=== PATIENT | female | born 1995 | race Two or more races ===

== ENCOUNTER → 2016-10-08 | Emergency (ER) | payer OTHER ==
[~2016-10-08] MED LIST: INSULIN (NOVOLOG) ASPART 100 UNITS/ML 10ML VIAL ONE; NITROFURANTOIN MACROCRYSTAL 50 MG CAPSULE (FP) ONE; NITROFURANTOIN MACROCRYSTAL 50 MG CAPSULE (FP) PO SCH
[2016-10-08 21:18] VITALS: TEMP 98.5; BMI 34.8
[2016-10-08 21:37] LABS: URINE APPEARANCE SLCLOUDY; URINE BILIRUBIN NEGATIVE (NEGATIVE); URINE BLOOD NEGATIVE (NEGATIVE); URINE COLOR LTYELLOW; URINE GLUCOSE (UA) NEGATIVE (NEGATIVE); URINE KETONE NEGATIVE (NEGATIVE); URINE NITRITE NEGATIVE (NEGATIVE); URINE PROTEIN NEGATIVE (NEGATIVE); URINE UROBILINOGEN NEGATIVE E.U./dl (0.2-1.0)
[2016-10-08 21:39] LABS: URINE LEUK ESTERASE 2+ (NEGATIVE)
[2016-10-08 21:40] LABS: URINE MUCUS RARE; URINE RBC 5 /hpf (0-3); URINE WBC 8 /hpf (3-5)
--- NOTE | 2016-10-08 23:28 | PDOC ---
History of Present Illness - General History Source: Patient, Old Records Exam Limitations: No Limitations <Vanessa Orozco - Last Filed: 10/09/16 00:03> - History of Present Illness Initial Comments: 10/09/16 00:12 Patient is a 20 year old female (G1; LNMP: 07/2016 - reports irregular menses) with no significant medical hx who is presenting to the ED abdominal pain and fever since yesterday. Patient complains of suprapubic pain but denies any vaginal bleeding, discharge, dysuria or other complaints. She notes that her fever went as high as 103.1. The patient also reports two days of hot flashes, dizziness, and nasal congestion. Patient has been taking tylenol for her symptoms. Denies any cough, wheezing, nausea, vomiting or diarrhea. <Yesenia Foster - Last Filed: 10/09/16 00:15> - General Chief Complaint: ,Possible Stated Complaint: ABD PAIN Time Seen by Provider: 10/08/16 23:17 Past History - Psycho/Social/Smoking Cessation Hx Suicidal Ideation: No Smoking History: Never smoked Have you smoked in the past 12 months: No Information on smoking cessation initiated: No Hx Alcohol Use: No Drug/Substance Use Hx: No <Vanessa Orozco - Last Filed: 10/09/16 00:03> <Yesenia Foster - Last Filed: 10/09/16 00:15> - Past Medical History Allergies/Adverse Reactions: Allergies Allergy/AdvReac Type Severity Reaction Status Date / Time No Known Allergies Allergy Verified 10/08/16 21:18 Home Medications: Ambulatory Orders Nitrofurantoin Monohyd/M-Cryst [Macrobid -] 100 mg PO BID #14 capsule 10/09/16 Review of Systems - Review of Systems Comments:: 10/09/16 00:13 GENERAL/CONSTITUTIONAL: Fever, hot flashes. No chills. No weakness. HEAD, EYES, EARS, NOSE AND THROAT: Nasal congestion. No change in vision. No ear pain or discharge. No sore throat. CARDIOVASCULAR: No chest pain or shortness of breath. RESPIRATORY: No cough, wheezing, or hemoptysis. GASTROINTESTINAL: Suprapubic pain. No nausea, vomiting, diarrhea or constipation. GENITOURINARY: No dysuria, frequency, or change in urination. MUSCULOSKELETAL: No joint or muscle swelling or pain. No neck or back pain. ENDOCRINE: No increased thirst. No abnormal weight change. SKIN: No rash NEUROLOGIC: Dizziness. No headache, loss of consciousness, or change in strength /sensation. <Yesenia Foster - Last Filed: 10/09/16 00:15> *Physical Exam - Vital Signs Last Vital Signs Temp Pulse Resp BP Pulse Ox 98.5 F 71 18 110/59 100 10/08/16 21:15 10/08/16 21:15 10/08/16 21:15 10/08/16 21:15 10/08/16 21:15 <Vanessa Orozco - Last Filed: 10/09/16 00:03> - Vital Signs Last Vital Signs Temp Pulse Resp BP Pulse Ox 98.5 F 71 18 110/59 100 10/08/16 21:15 10/08/16 21:15 10/08/16 21:15 10/08/16 21:15 10/08/16 21:15 - Physical Exam Comments: 10/09/16 00:14 GENERAL: Awake, alert, and fully oriented, in no acute distress HEAD: No signs of trauma EYES: PERRLA, EOMI, sclera anicteric, conjunctiva clear ENT: Auricles normal inspection, hearing grossly normal, nares patent, oropharynx clear without exudates. Moist mucosa NECK: Normal ROM, supple, no lymphadenopathy, JVD, or masses LUNGS: Breath sounds equal, clear to auscultation bilaterally. No wheezes, and no crackles HEART: Regular rate and rhythm, normal S1 and S2, no murmurs, rubs or gallops ABDOMEN: Soft, mild suprapubic tenderness without any guarding or rebound, normoactive bowel sounds. No masses EXTREMITIES: Normal range of motion, no edema. No clubbing or cyanosis. No cords, erythema, or tenderness NEUROLOGICAL: Cranial nerves II through XII grossly intact. Normal speech, normal gait SKIN: Warm, Dry, normal turgor, no rashes or lesions noted. HEMATOLOGIC/LYMPHATIC: No anemia, easy bleeding, or history of blood clots. ALLERGIC/IMMUNOLOGIC: No hives or skin allergy. PELVIC: Os closed. No vaginal discharge. No cervical motion tenderness. <Yesenia Foster - Last Filed: 10/09/16 00:15> ED Treatment Course - ADDITIONAL ORDERS Additional order review: Laboratory Results 10/08/16 21:25 Urine Color Ltyellow Urine Appearance Slcloudy Urine pH 6.0 Urine Protein Negative Urine Glucose (UA) Negative Urine Ketones Negative Urine Blood Negative Urine Nitrite Negative Urine Bilirubin Negative Urine Urobilinogen Negative Ur Leukocyte Esterase 2+ H Urine RBC 5 Urine WBC 8 Ur Epithelial Cells Moderate Urine Mucus Rare Urine HCG, Qual Positive <Vanessa Orozco - Last Filed: 10/09/16 00:03> - ADDITIONAL ORDERS Additional order review: Laboratory Results 10/08/16 21:25 Urine Color Ltyellow Urine Appearance Slcloudy Urine pH 6.0 Urine Protein Negative Urine Glucose (UA) Negative Urine Ketones Negative Urine Blood Negative Urine Nitrite Negative Urine Bilirubin Negative Urine Urobilinogen Negative Ur Leukocyte Esterase 2+ H Urine RBC 5 Urine WBC 8 Ur Epithelial Cells Moderate Urine Mucus Rare Urine HCG, Qual Positive <Yesenia Foster - Last Filed: 10/09/16 00:15> Medical Decision Making - Medical Decision Making 10/09/16 00:03 20-year-old female presents the emergency Department with complaints of lower abdominal pain intermittent for several weeks, worse over the past 2 days. She has no vaginal discharge or bleeding. Differential diagnosis includes but is not limited to: Ectopic , urinary tract infection, round ligament pain. Plan: 1. Urine analysis 2. Pelvic ultrasound 3. Observe and reevaluate Addendum: Urine analysis is positive for leukoesterase. Focused bedside ultrasound reveals a positive IUP measuring 5 weeks and 6 days. There is a pole with a heart beat visualized; however heart rate could not be obtained due to the size of the . There were no adnexal masses or ectopic pregnancies visualized on my exam therefore heterotopic is unlikely. I will treat the patient for a UTI. I have instructed the patient to follow-up with her derrick boat runner within the next week and to return to the emergency department if her symptoms persist, worsen, or new symptoms arise. <Vanessa Orozco - Last Filed: 10/09/16 00:03> *DC/Admit/Observation/Transfer - Discharge Dispostion Admit: No - Attestations Physician Attestion: 10/09/16 00:07 I, Dr. Vanessa Orozco, attest that the scribes documentation that appears above has been prepared under my direction and personally reviewed by me in its entirety. I confirmed that the note above accurately reflects all work, treatment, procedures, and medical decision-making performed by me. <Vanessa Orozco - Last Filed: 10/09/16 00:03> - Attestations Scribe Attestion: 10/09/16 00:15 Documentation prepared by Yesenia Foster, acting as medical van driver for Vanessa Orozco MD. <Yesenia Foster - Last Filed: 10/09/16 00:15> Diagnosis at time of Disposition: UTI (urinary tract infection), , incidental - Prescriptions Prescriptions: Nitrofurantoin Monohyd/M-Cryst [Macrobid -] 100 mg PO BID #14 capsule - Referrals Referrals: STAFF,NOT ON [Primary Care Provider] - - Patient Instructions Printed Discharge Instructions: DI for Urinary Tract Infection (UTI) Additional Instructions: You are being treated for a urinary tract infection with macrobid 100mg--take one tablet twice per day. you have received your first dose in the ED today. Please follow-up with your White Spooler within the next 1-3 days and return to the ED if your symptoms persist, worsen or new symptoms arise.
[2016-10-09 00:38] VITALS: BP 108/67; PULSE 67
== END | disposition home or self-care (01) ==
LOC: JER 20:41
DX: O23.31 Infections of other parts of urinary tract in pregnancy, first trimester (principal); Z3A.01 Less than 8 weeks gestation of pregnancy
CPT/HCPCS: 36415; 81003; 81015; 84702; 84703; 87086; 99283-25

== ENCOUNTER 2019-06-20 21:05 | Emergency (ER) | payer OTHER ==
[2019-06-20] MEDS ORDERED: ACETAMINOPHEN 500 MG TABLET (FP) PO ONE (21:52)
[2019-06-20 21:53] VITALS: BMI 30.2
--- NOTE | 2019-06-20 21:54 | PDOC ---
Rapid Medical Evaluation Chief Complaint: Pain Time Seen by Provider: 06/20/19 21:50 Medical Evaluation: Allergies Allergy/AdvReac Type Severity Reaction Status Date / Time No Known Allergies Allergy Verified 10/08/16 21:18 06/20/19 21:52 pt c/o: midsuprapubic cramping since 2 days now radiating to back , lmp 05/19, took home preg today and was - pt on brief exam: midsuprapubic tenderness, vss pt ordered for: urine and beta hcg pt to proceed to proceed to the ED Discharge Disposition - Diagnosis Pelvic pain with positive beta-human chorionic gonadotropin (BhCG) in female - Discharge Dispostion Disposition: HOME - Referrals - Patient Instructions Printed Discharge Instructions: In-Home Tests: Your Questions Answered Additional Instructions: Drink plenty of fluids. Start taking a vitamins. You need to return to the emergency room in 2 days or follow-up with the music library assistant in 2 days for repeat beta-hCG level. return immediately to the emergency room if you are experiencing severe abdominal pain, vaginal bleeding soaking through 2 pads per hour or any worsening symptoms - Post Discharge Activity Work/School Note: Back to Work, Back to School
[2019-06-20 22:15] LABS: PH,URINE 5.5 (5.0-8.0); URINE APPEARANCE CLEAR; URINE BILIRUBIN NEGATIVE (NEGATIVE); URINE COLOR YELLOW; URINE GLUCOSE (UA) NEGATIVE (NEGATIVE); URINE KETONE TRACE (NEGATIVE); URINE LEUK ESTERASE NEGATIVE (NEGATIVE); URINE NITRITE NEGATIVE (NEGATIVE); URINE PROTEIN NEGATIVE (NEGATIVE); URINE UROBILINOGEN 0.2 mg/dL (0.2-1.0)
[2019-06-21] MEDS ORDERED: ACETAMINOPHEN 325 MG TABLET (FP) ONE (00:12)
--- NOTE | 2019-06-21 01:02 | PDOC ---
History of Present Illness - General Chief Complaint: Pain Stated Complaint: LOWER BACK PAIN Time Seen by Provider: 06/20/19 21:50 History Source: Patient - History of Present Illness Initial Comments: 06/21/19 02:30 23-year-old female complaining of suprapubic/pelvic pain radiating to the back. Patient reports that she took a urine test at home and was positive. Patient is G3, P1. Denies urinary symptoms, nausea, vomiting, diarrhea, abdominal pain, vaginal bleeding, vaginal discharge Last menstrual period 05/19/2019 06/21/19 03:16 Past History - Past Medical History Allergies/Adverse Reactions: Allergies Allergy/AdvReac Type Severity Reaction Status Date / Time No Known Allergies Allergy Verified 06/20/19 21:53 Home Medications: Ambulatory Orders Nitrofurantoin Monohyd/M-Cryst [Macrobid -] 100 mg PO BID #14 capsule 10/09/16 COPD: No Other medical history: ectopic - Reproductive History (#): 1 Para: 0 Cervical CA: No Dysfunctional Uterine Bleeding: No Ectopic : No Endometrial CA: No Polycystic Ovaries: No Therapeutic (s) & number: No Tubal Ligation: No Spontaneous : 0 - Immunization History Immunization Up to Date: Yes - Psycho Social/Smoking Cessation Hx Smoking History: Never smoked Have you smoked in the past 12 months: No Information on smoking cessation initiated: No Hx Alcohol Use: No Drug/Substance Use Hx: No Substance Use Type: None Review of Systems - Review of Systems Able to Perform ROS?: Yes Is the patient limited [place] proficient: No : Yes: Other (pelvic pain). No: Symptoms Reported, See HPI, Burning, Dysuria , Discharge, Frequency, Flank Pain, Hematuria, Incontinence, Pain, Urgency, Testicular Mass, Testicular Swelling, Lesions, Testicular Pain Musculoskeletal: Yes: Back Pain *Physical Exam - Vital Signs Last Vital Signs Temp Pulse Resp BP Pulse Ox 98.4 F 63 17 107/40 L 100 06/20/19 21:51 06/20/19 21:51 06/20/19 21:51 06/20/19 21:51 06/20/19 21:51 - Physical Exam General Appearance: Yes: Appropriately Dressed Respiratory/Chest: positive: Lungs Clear, Normal Breath Sounds Gastrointestinal/Abdominal: positive: Normal Bowel Sounds, Tender (suprapubic), Soft Musculoskeletal: positive: Normal Inspection. negative: CVA Tenderness Extremity: positive: Normal Capillary Refill, Normal Inspection, Normal Range of Motion Integumentary: positive: Normal Color, Dry, Warm Neurologic: positive: Fully Oriented, Alert ED Treatment Course - LABORATORY CBC & Chemistry Diagram: 06/21/19 01:25 - ADDITIONAL ORDERS Additional order review: Laboratory Results 06/20/19 21:57 Urine Color Yellow Urine Appearance Clear Urine pH 5.5 Ur Specific [place] 1.025 Urine Protein Negative Urine Glucose (UA) Negative Urine Ketones Trace H Urine Blood Negative Urine Nitrite Negative Urine Bilirubin Negative Urine Urobilinogen 0.2 Ur Leukocyte Esterase Negative - RADIOLOGY Radiology Studies Ordered: Category Date Time Status TRANSVAGINAL US PREG [US] Stat Ultrasound 06/21/19 00:58 Ordered - Medications Given in the ED: ED Medications Discontinued Medications Generic Name Dose Route Start Last Admin Trade Name Su PRN Reason Stop Dose Admin Acetaminophen 975 mg 06/20/19 21:52 06/21/19 00:19 Tylenol - PO 06/20/19 21:53 975 mg ONCE ONE Administration ED Progress Note - Progress Note Progress Note: 06/21/19 02:32 A: pelvic pain, beta hcg levels P: cbc beta hcg type and screen AB negative: no vaginal bleeding 06/21/19 03:17 Discharge - Discharge Information Problems reviewed: Yes Clinical Impression/Diagnosis: Pelvic pain with positive beta-human chorionic gonadotropin (BhCG) in female Disposition: HOME - Follow up/Referral - Patient Discharge Instructions Patient Printed Discharge Instructions: In-Home Tests: Your Questions Answered Additional Instructions: Drink plenty of fluids. Start taking a vitamins. You need to return to the emergency room in 2 days or follow-up with the television cabinet finisher in 2 days for repeat beta-hCG level. return immediately to the emergency room if you are experiencing severe abdominal pain, vaginal bleeding soaking through 2 pads per hour or any worsening symptoms - Post Discharge Activity Work/Back to School Note: Back to Work, Back to School
[2019-06-21 02:01] LABS: BASO % 0.2 % (0-2.0); EOS % 0.7 % (0-4.5); HEMOGLOBIN 12.7 GM/dL (10.7-15.3); LYMPH % 39.1 % (8-40); MCH 31.8 pg (25.7-33.7); MCHC 34.3 g/dl (32.0-36.0); MEAN CELL VOLUME 92.7 fl (80-96); MEAN PLT VOLUME 8.5 fl (7.5-11.1); PLATELET COUNT 265 K/MM3 (134-434); RBC 3.99 M/mm3 (3.60-5.2); RDW 14.1 % (11.6-15.6); WHITE BLOOD COUNT 7.9 K/mm3 (4.0-10.0)
[2019-06-21 03:23] VITALS: BP 102/51; PULSE 71; TEMP 98.2
== END 2019-06-21 02:55 | disposition home or self-care (01) ==
LOC: JER 21:05
DX: O26.891 Other specified pregnancy related conditions, first trimester (principal); R10.2 Pelvic and perineal pain; Z3A.01 Less than 8 weeks gestation of pregnancy
CPT/HCPCS: 36415; 76817-TC; 81003; 84702; 85025; 86850; 86900; 86901; 87086; 99284-25